=== PATIENT | female | born 1950 | race Caucasian/White ===

== ENCOUNTER 2022-02-09 17:24 | Emergency (ER) | payer MEDICARE, BC ==
[2022-02-09 19:28] LABS: Bilirubin Negative (Negative); Blood, Urine Negative (Negative); Clarity Clear (Clear); Glucose, Urine (Dipstick) 100 mg/dL (Negative); Ketone, Urine Negative (Negative); Leukocyte Negative Leu/uL (Negative); Nitrite Negative (Negative); Protein, Urine (Dipstick) Negative (Neg-Trace); Specific Gravity, Urine 1.011 (1.002-1.036); Urobilinogen Normal mg/dL (Less than 2); pH, Urine 6.5 (5.0-9.0)
[2022-02-09 19:39] LABS: Albumin 4.2 g/dL (3.4-4.8)
[2022-02-09 19:41] LABS: Calcium 9.4 mg/dL (7.8-10.44); Chloride 105 mmol/L (98-107); Potassium 3.7 mmol/L (3.5-5.1); Sodium 142 mmol/L (136-145)
[2022-02-09 19:42] LABS: Globulin 3.4 g/dL (2.4-3.5); Glucose 90 mg/dL (80-115); Protein, Total 7.6 g/dL (5.8-8.1)
[2022-02-09 19:44] LABS: Anion Gap 15 mmol/L (10-20); Bilirubin, Total 0.3 mg/dL (0.2-1.2); Carbon Dioxide 26 mmol/L (23-31)
[2022-02-09 19:45] LABS: Alkaline Phosphatase 78 U/L (40-110); Calc. Creatinine Clearance 0 mL/min (70-130); Estimated GFR 87
[2022-02-09 19:46] LABS: BUN (Urea Nitrogen) 20 mg/dL (9.8-20.1)
[2022-02-09 19:47] LABS: AST (SGOT) 20 U/L (5-34)
[2022-02-09 19:48] LABS: ALT (SGPT) 20 U/L (8-55)
== END 2022-02-09 20:12 | disposition home or self-care (01) ==
LOC: ERS 17:24
DX: E10.649 Type 1 diabetes mellitus with hypoglycemia without coma (principal); I10 Essential (primary) hypertension; E78.00 Pure hypercholesterolemia, unspecified; Z79.899 Other long term (current) drug therapy; Z79.4 Long term (current) use of insulin
CPT/HCPCS: 36415; 36416; 80053; 81003; 99285